=== PATIENT | male | born 1945 | race Caucasian/White ===

== ENCOUNTER → 2017-01-29 | Outpatient (CLI) | payer OTHER, MEDICARE | END | disposition home or self-care (01) | LOC: GMAJ 10:12 | PROVIDERS: ATTEND Family Medicine | DX: Z79.899 Other long term (current) drug therapy (principal); I10 Essential (primary) hypertension ==

== ENCOUNTER → 2017-03-16 | Outpatient (CLI) | payer BC | END | disposition home or self-care (01) | LOC: GMAJ 15:20 | PROVIDERS: ATTEND Family Medicine | DX: E03.9 Hypothyroidism, unspecified (principal) ==

== ENCOUNTER → 2017-04-19 | Outpatient (CLI) | payer BC | LOC: GMAJ 11:43 | PROVIDERS: ATTEND Family Medicine | DX: E03.9 Hypothyroidism, unspecified (principal) ==

== ENCOUNTER → 2017-05-25 | Outpatient (CLI) | payer BC | LOC: GMAJ 11:37 | PROVIDERS: ATTEND Family Medicine | DX: E03.9 Hypothyroidism, unspecified (principal); Z12.5 Encounter for screening for malignant neoplasm of prostate ==

== ENCOUNTER → 2017-06-30 | Outpatient (CLI) | payer BC | LOC: GMAJ 10:37 | PROVIDERS: ATTEND Family Medicine | DX: I10 Essential (primary) hypertension (principal) ==

== ENCOUNTER → 2017-09-01 | Outpatient (CLI) | payer BC | LOC: GMAJ 15:16 | PROVIDERS: ATTEND Family Medicine | DX: E03.9 Hypothyroidism, unspecified (principal) ==

== ENCOUNTER → 2017-12-15 | Outpatient (CLI) | payer BC | LOC: GMAJ 10:40 | PROVIDERS: ATTEND Family Medicine | DX: E03.9 Hypothyroidism, unspecified (principal); Z79.899 Other long term (current) drug therapy ==

== ENCOUNTER → 2018-02-28 | Outpatient (CLI) | payer BC | LOC: GMAJ 11:15 | PROVIDERS: ATTEND Family Medicine | DX: E03.9 Hypothyroidism, unspecified (principal) ==

== ENCOUNTER → 2018-03-01 | Outpatient (CLI) | payer BC | LOC: RESP 12:05 | PROVIDERS: ATTEND Family Medicine | DX: R55 Syncope and collapse (principal) ==

== ENCOUNTER → 2018-03-22 | Outpatient (CLI) | payer BC ==
--- NOTE | 2018-03-22 18:06 | MRI ---
EXAM DESCRIPTION: Cervical Spine CLINICAL HISTORY: M47.13 COMPARISON: Correlation is made with x-ray of the C-spine March 01, 2018 TECHNIQUE: MRI of the cervical spine is performed according to our usual protocol. FINDINGS: Sagittal T2 images reveal decreased signal intensity within the intervertebral discs. Normal T2 appearance of the cervical cord. Posterior discal abnormalities are present at all cervical disc levels. Loss of disc height is most prominent at C5-6, C6-7 and C7-T1. Mild cervical scoliotic curvature. Sagittal T1 images show benign marrow signal characteristics. Normal T1 appearance of the cervical and upper thoracic spinal cord. Normal alignment of the vertebral bodies and facets. Sagittal STIR images are negative for high signal intensity marrow edema within the vertebral bodies or posterior elements. No paraspinous fluid collection or cystic lesion. Axial images were obtained to evaluate the disc levels. C2-3: Normal posterior disc margin with no spinal stenosis or neural foraminal narrowing. Facet degenerative spurring is present especially on the left. Normal appearance of the cord at this level. C3-4: Mild posterior disc/osteophyte complex with midline and left lateral accentuation. No significant spinal stenosis. There is mild right and moderate left neural foraminal narrowing related to uncovertebral joint and facet spurring. Normal appearance of the cord at this level. C4-5: Mild posterior disc/osteophyte complex without significant spinal stenosis . There is midline accentuation. Mild left and moderate right neural foraminal narrowing is present related to uncovertebral joint and facet spurring. Normal appearance of the cord at this level. C5-6: Moderate posterior disc/osteophyte complex is seen with mild ventral cord contouring. No high-grade spinal stenosis. There is mild left and moderately severe right neural foraminal narrowing related to uncovertebral joint and facet spurring. C6-7: Moderate diffuse posterior disc/osteophyte complex is seen with mild ventral cord contouring but no high-grade spinal stenosis. Facet degenerative changes are mild. Uncovertebral joint spurring is prominent causing moderate right neural foraminal narrowing. Neural foraminal narrowing on the left appears moderately severe on the sagittal images. C7-T1: Mild posterior annular bulge without significant spinal stenosis. There is mild right and moderate left neural foraminal narrowing related to uncovertebral joint and facet spurring. Normal appearance of the cord at this level. IMPRESSION: No acute-appearing disc herniation or high-grade spinal stenosis. Multilevel disc degeneration with facet and uncovertebral joint spurring causing multilevel neural foraminal narrowing as described above. Electronically signed by: Erich Roberts MD 03/22/2018 6:05 PM [facility]
== END ==
LOC: MRI 12:58
PROVIDERS: ATTEND Family Medicine
DX: M47.812 Spondylosis without myelopathy or radiculopathy, cervical region (principal); M47.12 Other spondylosis with myelopathy, cervical region; M50.10 Cervical disc disorder with radiculopathy, unspecified cervical region

== ENCOUNTER → 2018-11-24 | Outpatient (CLI) | payer BC | LOC: GMAJ 10:54 | PROVIDERS: ATTEND Family Medicine | DX: I10 Essential (primary) hypertension (principal); E11.9 Type 2 diabetes mellitus without complications; E03.9 Hypothyroidism, unspecified ==

== ENCOUNTER → 2018-11-29 | Outpatient (CLI) | payer BC, MEDICARE | LOC: GMAJ 17:50 | PROVIDERS: ATTEND Family Medicine | DX: Z12.5 Encounter for screening for malignant neoplasm of prostate (principal) ==

== ENCOUNTER 2019-01-20 16:50 | Emergency (ER) | payer BC, MEDICARE, OTHER ==
--- NOTE | 2019-01-20 17:53 | RAD ---
EXAM DESCRIPTION: Chest,1 View CLINICAL HISTORY: 73 years Male, palpitaioins, dizzziness COMPARISON: Previous chest x-ray February 01, 2012 TECHNIQUE: AP portable chest. FINDINGS: Heart size is prominent with normal pulmonary vascularity. Sternotomy wires are present. Discoid atelectasis left lung base. This appeared similar on previous study. Right hemidiaphragm is mildly elevated with colonic interposition below. No pulmonary mass or worrisome nodule. No pneumothorax or pleural effusion. Bones are unremarkable. IMPRESSION: Discoid atelectasis in left lung base. Electronically signed by: Erich Roberts MD 01/20/2019 5:51 PM [facility] [employer]
[2019-01-20] MEDS ORDERED: SODIUM CHLORIDE 0.9% 1000ML 500 ML IVS ONE ×2 (18:34→21:12)
[2019-01-20] MEDS ORDERED: METOPROLOL TARTRATE 25 MG TAB PO ONE (19:05)
[2019-01-20] MEDS ORDERED: AMIODARONE HCL 200 MG TAB PO ONE (21:11)
--- NOTE | 2019-01-20 21:41 | ED.PDOC ---
History of Present Illness - General Chief Complaint: Cardiovascular Problem Time Seen by Provider: 01/20/19 17:13 Source: patient Exam Limitations: no limitations - History of Present Illness Initial Comments: the patient is a 73-year-old male presenting to the emergency room secondary to dizziness with sitting and standing started this morning. no Chest pain. He and his noted that his heart rate has been higher than normal today. he reports that normally his heart rate is down in the 60s to 70s but today it is ranging from 100-120. It appears to be a sinus tachycardia on the case monitor. No chest pain or shortness of breath. No syncope. He does take a water pill. He does take amiodarone 3 times a week and took a dose this morning. He also takes metoprolol once a day. He did have a dose of that as well. Systolic blood pressure is in the low 90s upon arrival here. Timing/Duration: other - 8 hours Severity: mild Improving Factors: nothing Worsening Factors: nothing Associated Symptoms: malaise Allergies/Adverse Reactions: Allergies NO KNOWN ALLERGY Allergy (Verified 03/23/12 08:34) Review of Systems - Review of Systems Constitutional: States: malaise EENTM: States: no symptoms reported Respiratory: States: no symptoms reported Cardiology: States: no symptoms reported Gastrointestinal/Abdominal: States: no symptoms reported Genitourinary: States: no symptoms reported Musculoskeletal: States: no symptoms reported Skin: States: no symptoms reported Neurological: States: other - dizziness Endocrine: States: no symptoms reported All other Systems: No Change from Baseline Past Medical History (General) - Patient Medical History Hx Stroke: No Hx Cardiac Disorders: Yes - Atrial fib; hx DC w/stent placement Hx Hypertension: Yes Hx Thyroid Disease: Yes Hx Diabetes: No Hx MRSA: No Surgical History: other - Vaccination History Hx Influenza Vaccination: Yes - 2018 Hx Pneumococcal Vaccination: Yes - Social History Hx Tobacco Use: No Hx Alcohol Use: Yes - Occasional use Family Medical History - Family History Father Living Status: Hx Cardiac Disease: Yes Physical Exam - Physical Exam General Appearance: Alert, Comfortable, No apparent distress Eye Exam: bilateral normal Ears, Nose, Throat: hearing grossly normal - he does have some chronic hearing loss, normal pharynx Neck: non-tender, supple Respiratory: lungs clear, normal breath sounds, no respiratory distress, no accessory muscle use Cardiovascular/Chest: normal peripheral pulses, no edema, tachycardia - but regular Peripheral Pulses: radial,right: 2+, radial,left: 2+ Gastrointestinal/Abdominal: non tender, soft Rectal Exam: deferred Back Exam: no CVA tenderness, no vertebral tenderness Extremity: normal range of motion, no pedal edema, no calf tenderness, normal capillary refill Neurologic: cephalometric analyst II-XII nml as tested, alert, normal mood/affect, oriented x 3 Skin Exam: normal color Comments: Vital Signs - 24 hr 01/20/19 01/20/19 01/20/19 17:03 18:00 19:03 Temperature 97.8 F Pulse Rate Pulse Rate [ 112 H 112 H 110 H Right Radial] Respiratory 20 18 Rate Blood Pressure 99/76 101/81 111/79 [Right Arm] O2 Sat by Pulse 98 95 95 Oximetry 01/20/19 01/20/19 20:00 21:00 Temperature 97.1 F L Pulse Rate 109 H Pulse Rate [ 110 H 110 H Right Radial] Respiratory 18 20 Rate Blood Pressure 112/85 109/86 [Right Arm] O2 Sat by Pulse 97 95 Oximetry Progress - Progress Progress: 01/20/19 21:46 the patient is a 73-year-old male presenting to emergency room secondary to significant orthostasis causing dizziness. The patient has receive d a liter and a half of IV fluids and appears to have tolerated this well. His dizziness seems to have stopped. Additionally he does have some sinus tachycardia. He was given a small dose of metoprolol and was also given a dose of his amiodarone. Source of the tachycardia in relation to his normal heart rate is not certain. He may have simply had poor absorption of the amiodarone this morning. No evidence of myocardial infarction based on the laboratory work. He is not in respiratory distress. I'm going to recommend that he reduce his hydrochlorothiazide dose by half. He should give his repairer veneer sheet to call on Wednesday to discuss the visit and the recommendations. Blood pressures have improved with IV fluids. Again symptomatically the patient has improved. Follow-up as above. ER warnings were given for any significant worsening. No other source for the hypotension or tachycardia has been found at this time. [email or web address] [id number] - Results/Orders Results/Orders: chest x-ray shows no obvious acute pathology. 01/20/19 17:30 EKG STAT EKG shows left axis deviation. 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 No definitive ST segment changes indicative of ischemia. Sinus tachycardia at 112 bpm. Laboratory Results - last 24 hr 01/20/19 01/20/19 01/20/19 18:01 18:01 18:01 WBC 8.4 RBC 4.39 L Hgb 14.1 Hct 41.6 L MCV 94.9 H MCH 32.0 H MCHC 33.8 RDW 13.7 Plt Count 219 MPV 9.5 Absolute Neuts (auto) 5.70 Absolute Lymphs (auto) 1.70 Absolute Monos (auto) 0.80 Absolute Eos (auto) 0.10 Absolute Basos (auto) 0.10 Neutrophils % 68.0 Lymphocytes % 20.6 Monocytes % 9.4 H Eosinophils % 1.1 Basophils % 0.9 PT 11.0 H INR 1.10 PTT (SP) 27.3 Sodium 137 Potassium 4.1 Chloride 105 Carbon Dioxide 19 L Anion Gap 17.1 BUN 22 H Creatinine 1.21 BUN/Creatinine Ratio 18.2 Random Glucose 100 Serum Osmolality 277.2 Calcium 9.7 Magnesium 1.9 Total Bilirubin 0.7 AST 29 ALT 22 Alkaline Phosphatase 55 Creatine Kinase 217 H* CK-MB (CK-2) 5.3 H* CK-MB (CK-2) % 2.44 Troponin I 0.04 B-Natriuretic Peptide 478.0 H* Serum Total Protein 7.8 Albumin 4.7 Globulin 3.1 Albumin/Globulin Ratio 1.5 TSH 0.62 Urine Color Urine Appearance Urine pH Ur Specific [place] Urine Protein Urine Glucose (UA) Urine Ketones Urine Blood Urine Nitrite Urine Bilirubin Urine Urobilinogen Ur Leukocyte Esterase Urine RBC Urine WBC Ur Epithelial Cells Urine Bacteria 01/20/19 01/20/19 20:38 20:52 WBC RBC Hgb Hct MCV MCH MCHC RDW Plt Count MPV Absolute Neuts (auto) Absolute Lymphs (auto) Absolute Monos (auto) Absolute Eos (auto) Absolute Basos (auto) Neutrophils % Lymphocytes % Monocytes % Eosinophils % Basophils % PT INR PTT (SP) Sodium Potassium Chloride Carbon Dioxide Anion Gap BUN Creatinine BUN/Creatinine Ratio Random Glucose Serum Osmolality Calcium Magnesium Total Bilirubin AST ALT Alkaline Phosphatase Creatine Kinase 185 H CK-MB (CK-2) 4.8 H* CK-MB (CK-2) % 2.59 Troponin I 0.04 B-Natriuretic Peptide Serum Total Protein Albumin Globulin Albumin/Globulin Ratio TSH Urine Color Yellow Urine Appearance Clear Urine pH 5.0 Ur Specific [place] 1.015 Urine Protein Trace Urine Glucose (UA) Negative Urine Ketones Trace Urine Blood Negative Urine Nitrite Negative Urine Bilirubin Negative Urine Urobilinogen 0.2 Ur Leukocyte Esterase Negative Urine RBC 0-1 Urine WBC 0-1 Ur Epithelial Cells 0 Urine Bacteria Rare Departure - Departure Clinical Impression: Orthostasis, Sinus tachycardia Disposition: Discharge to Home or Self Care Condition: Fair Departure Forms: ED Discharge - Pt. Copy, Patient Portal Self Enrollment Instructions: Orthostatic Hypotension (DC) Diet: low fat, low cholesterol Activity: increase activity as tolerated Referrals: López Pyle MD [Primary Care Provider] - 1-5 Days Additional Instructions: the patient is a 73-year-old male presenting to emergency room secondary to significant orthostasis causing dizziness. The patient has received a liter and a half of IV fluids and appears to have tolerated this well. His dizziness seems to have stopped. Additionally he does have some sinus tachycardia. He was given a small dose of metoprolol and was also given a dose of his amiodarone. Source of the tachycardia in relation to his normal heart rate is not certain. He may have simply had poor absorption of the amiodarone this morning. No evidence of myocardial infarction based on the laboratory work. He is not in respiratory distress. I'm going to recommend that he reduce his hydrochlorothiazide dose by half. He should give his repairer veneer sheet to call on Wednesday to discuss the visit and the recommendations. Blood pressures have improved with IV fluids. Again symptomatically the patient has improved. Follow-up as above. ER warnings were given for any significant worsening or new symptom development. No other source for the hypotension or tachycardia has been found at this time.
[2019-01-20 22:06] VITALS: BP 106/81; TEMP 97.3; O2SAT 96
== END 2019-01-20 22:05 | disposition home or self-care (01) ==
LOC: ER 16:50
DX: I95.1 Orthostatic hypotension (principal); R00.0 Tachycardia, unspecified; R42 Dizziness and giddiness; I44.4 Left anterior fascicular block; I48.91 Unspecified atrial fibrillation; I25.2 Old myocardial infarction; I10 Essential (primary) hypertension; E07.9 Disorder of thyroid, unspecified; Z95.5 Presence of coronary angioplasty implant and graft
CPT/HCPCS: 36415; 71045; 80053; 81001; 82550; 82553; 83735; 83880; 84443; 84484; 85025; 85610; 85730; 93005; J7030

== ENCOUNTER → 2019-07-21 | Outpatient (CLI) | payer OTHER, BC ==
--- NOTE | 2019-07-21 08:18 | CT ---
EXAM DESCRIPTION: Head CLINICAL HISTORY: TRANSIENT CEREBRAL ISCHEMIC ATTACK COMPARISON: None TECHNIQUE: Noncontrast transaxial CT images of the head are obtained from base to vertex. This exam was performed according to our departmental dose-optimization program, which includes automated exposure control, adjustment of the mA and/or kV according to patient size and/or use of iterative reconstruction technique. FINDINGS: The midline structures are not displaced. Sulci are age-appropriate. There are areas of decreased attenuation in the periventricular white matter and the white matter of the centrum semiovale. There is no evidence of mass, mass-effect, hydrocephalus, or acute intracranial hemorrhage. No abnormal extra axial fluid collection is seen. Moderate calcifications of the intracranial carotid arteries are seen. Bone windows show no evidence of depressed skull fracture. The visualized paranasal sinuses are unremarkable. IMPRESSION: 1. Age-appropriate atrophy with evidence of old small vessel ischemic type changes seen. 2. No acute abnormality is seen on noncontrast CT of the head. Electronically signed by: Perez Nielsen MD 07/21/2019 8:17 AM CDT
== END ==
LOC: CT 08:00
PROVIDERS: ATTEND Family Medicine
DX: G45.9 Transient cerebral ischemic attack, unspecified (principal); G31.1 Senile degeneration of brain, not elsewhere classified

== ENCOUNTER → 2019-09-19 | Outpatient (CLI) | payer OTHER | LOC: GMAJ 10:26 | PROVIDERS: ATTEND Family Medicine | DX: N40.1 Benign prostatic hyperplasia with lower urinary tract symptoms (principal) ==

== ENCOUNTER → 2019-11-22 | Outpatient (CLI) | payer OTHER | LOC: GMAJ 10:40 | PROVIDERS: ATTEND Family Medicine | DX: Z79.899 Other long term (current) drug therapy (principal); E78.00 Pure hypercholesterolemia, unspecified; E03.9 Hypothyroidism, unspecified ==

== ENCOUNTER → 2020-05-06 | Outpatient (CLI) | payer OTHER | LOC: GMAJ 14:28 | PROVIDERS: ATTEND Family Medicine | DX: R53.83 Other fatigue (principal); Z79.899 Other long term (current) drug therapy; R06.02 Shortness of breath; I10 Essential (primary) hypertension ==